=== PATIENT | female | born 1930 | race Caucasian/White ===

== ENCOUNTER 2019-07-14 06:46 | Day surgery (SDC) | payer MEDICARE ==
[~2019-07-14] VITALS: Ht 152.4 cm; Wt 74.0 kg
[~2019-07-14 06:46] MED LIST: ASPI81TA45 PO; ASPI81TA50 PO; DIAZ5TAB PO; IBUP-1223 PO; LOSA50TA14 PO; METO25TA35 PO; OMEP20CA9 PO; RALO60TA PO; SERT50TA PO; SIMV40TA3 PO; TRIA1TAB3 PO; TRIA1TAB5 PO
[2019-07-14] MEDS ORDERED: LACTATED RINGERS 1,000 ML IV SCH (07:48)
[2019-07-14] MEDS ORDERED: ASPI-496 PO (07:53)
[2019-07-14] MEDS ORDERED: TRIA1TAB3 PO (07:53)
[2019-07-14] MEDS ORDERED: RALO60TA PO (07:53)
[2019-07-14] MEDS ORDERED: PANT40TA5 PO (07:53)
[2019-07-14] MEDS ORDERED: MULT-658 PO (07:53)
[2019-07-14] MEDS ORDERED: PAPA1TAB8 PO (07:54)
[2019-07-14] MEDS ORDERED: CHOL500045 PO (07:54)
[2019-07-14 08:18] VITALS: BP 132/87
[2019-07-14] MEDS ORDERED: KETAMINE 10 MG/ML, 20ML ONE (08:25)
[2019-07-14] MEDS ORDERED: MIDAZOLAM 1 MG/ML, 2ML ONE (08:28)
[2019-07-14] MEDS ORDERED: FENTANYL PF 100 MCG/2ML ONE (08:28)
[2019-07-14] MEDS ORDERED: PROPOFOL 10 MG/ML, 20ML ONE ×2 (08:29)
[2019-07-14] MEDS ORDERED: ONDANSETRON 2MG/ML, 2ML IV PRN (09:00)
[2019-07-14] MEDS ORDERED: FENTANYL PF 100 MCG/2ML IV PRN (09:00)
[2019-07-14] MEDS ORDERED: MEPERIDINE/PF 25MG/ML,1ML IVPush PRN (09:00)
[2019-07-14] MEDS ORDERED: hydrALAzine 20 MG/ML, 1ML IV PRN (09:00)
[2019-07-14] MEDS ORDERED: HYDROmorphone 2 MG/ML, 1ML IVPush PRN (09:00)
[2019-07-14] MEDS ORDERED: OXYcodone 5 MG/5 ML ORAL.SOL UDC PO PRN (09:00)
== END 2019-07-14 12:45 | disposition home or self-care (01) ==
LOC: OR 06:46
PROVIDERS: ATTEND Internal Medicine Geriatric Medicine
DX: R93.3 Abnormal findings on diagnostic imaging of other parts of digestive tract (principal); K86.2 Cyst of pancreas; K21.9 Gastro-esophageal reflux disease without esophagitis; I10 Essential (primary) hypertension; I25.10 Atherosclerotic heart disease of native coronary artery without angina pectoris; Z88.5 Allergy status to narcotic agent
CPT/HCPCS: 43259; 93005; J2250; J2704; J3010; J7120

== ENCOUNTER 2019-08-06 09:31 | Emergency (ER) | payer MEDICARE ==
[~2019-08-06] VITALS: Ht 152.4 cm; Wt 72.3 kg
[~2019-08-06 09:31] MED LIST changes: +ASPI-496 PO; +CHOL500045 PO; +MULT-658 PO; +PANT40TA5 PO; +PAPA1TAB8 PO
--- NOTE | 2019-08-06 10:16 | NUR ---
NONPROFIT DIRECTOR: PT TO ROOM FROM LOBBY.
[2019-08-06] MEDS ORDERED: hydrOXYzine 50 MG/ML IM ONE (11:00)
[2019-08-06 11:09] LABS: BASOPHILS # (AUTO) 0.03 x10^3/uL (0-0.1); BASOPHILS % (AUTO) 0 % (0-1); EOSINOPHILS % (AUTO) 1 % (1-7); LYMPHOCYTES % (AUTO) 24 % (22-44); MD NO; MEAN CORPUSCULAR HEMOGLOBIN 29.5 pg (27.0-34.8); MEAN CORPUSCULAR HGB CONC 33.5 g/dL (32.4-35.8); MEAN CORPUSCULAR VOLUME 88.3 fL (80-100); MEAN PLATELET VOLUME 8.1 fL (7.4-10.4); MONOCYTES # (AUTO) 0.47 x10^3/uL (0.2-0.8); MONOCYTES % (AUTO) 5 % (2-9); NEUTROPHILS # (AUTO) 6.16 x10^3/uL (1.8-6.8); NEUTROPHILS % (AUTO) 70 % (42-75); PLATELET COUNT 216 x10^3/uL (130-400); RED BLOOD COUNT 5.35 x10^6/uL (3.82-5.3); RED CELL DISTRIBUTION WIDTH 13.7 % (9.6-15.2)
[2019-08-06] MEDS ORDERED: hydrOXyzine 50MG TABLET ONE (11:18)
[2019-08-06 11:19] LABS: ALBUMIN 3.8 g/dL (3.4-5.0); ANION GAP 9 mmol/L (5-15); CALCIUM 9.5 mg/dL (8.5-10.1); CHLORIDE 102 mmol/L (98-107); CREATININE 0.98 mg/dL (0.55-1.02)
[2019-08-06] MEDS ORDERED: hydrOXyzine 10MG TABLET PO ONE (11:30)
--- NOTE | 2019-08-06 11:30 | NUR ---
PT MEDICATED PER ERP ORDER FOR HIVES/ITCHING. CALL LIGHT WITHIN REACH.
[2019-08-06] MEDS ORDERED: POTASSIUM CHLORIDE 20 MEQ PACKET ONE (11:38)
[2019-08-06] MEDS ORDERED: POTASSIUM CHLORIDE 20 MEQ PACKET PO ONE (12:00)
[2019-08-06 12:30] VITALS: BP 124/88
--- NOTE | 2019-08-06 12:31 | NUR ---
PT WITH LESS ITCHING, DECREASED RASH FOLLOWING MEDICATION.
== END 2019-08-06 12:33 | disposition home or self-care (01) ==
LOC: ED 11:18
DX: L50.0 Allergic urticaria (principal); E87.6 Hypokalemia; I10 Essential (primary) hypertension; Z90.89 Acquired absence of other organs; Z90.710 Acquired absence of both cervix and uterus; Z90.49 Acquired absence of other specified parts of digestive tract
CPT/HCPCS: 36415; 80048; 82040; 85025; 99284; J7512

== ENCOUNTER → 2021-01-09 | Outpatient (CLI) | payer MEDICARE ==
[~2021-01-09] MED LIST changes: -PANT40TA5 PO; +PANT40TA6 PO; +SIMV40TA20 PO; -SIMV40TA3 PO
== END | disposition home or self-care (01) ==
LOC: CVU 15:22 → EDSTATUS 16:00
PROVIDERS: ATTEND Nurse Practitioner Family
DX: I08.0 Rheumatic disorders of both mitral and aortic valves (principal); I11.9 Hypertensive heart disease without heart failure; E78.5 Hyperlipidemia, unspecified
CPT/HCPCS: 93306